=== PATIENT | female | born 1990 | race Caucasian/White ===

== ENCOUNTER 2021-10-15 20:21 | Emergency (ER) | payer BC ==
[~2021-10-15] VITALS: Ht 160 cm; Wt 63.6 kg
[2021-10-15 21:11] VITALS: BP 119/80
--- NOTE | 2021-10-15 21:23 | PHYS DOC ---
Past History Alcohol Use: Occasionally (ZEHRA ESPANA APRN) General Adult EDM: Chief Complaint: ABDOMINAL PAIN HPI: HPI: Patient is a 31-year-old female presents with upper abdominal pain. Patient states that she was pushing her head on the swing today when she was kicked in the stomach by her 3-year-old. Patient states that she was concerned because she is 7 weeks . Patient states that she immediately had a gush of vaginal bleeding but has since resolved. Patient states that she still has mild abdominal pain but it has improved. Denies taking anything for discomfort. No medical history. (ZEHRA ESPANA APRN) Review of Systems: Review of Systems: ROS At least 10 ROS systems have been reviewed and are negative except as documented in the HPI. General: Negative except as outlined in HPI above. Skin: Negative except as outlined in HPI above. HEENT: Negative except as outlined in HPI above. Neck: Negative except as outlined in HPI above. Respiratory: Negative except as outlined in HPI above.. Cardiovascular: Negative except as outlined in HPI above. Abdomen: Negative except as outlined in HPI above. : Negative except as outlined in HPI above. Back/MSK: Negative except as outlined in HPI above. Neuro: Negative except as outlined in HPI above. Psych: Negative except as outlined in HPI above. (ZEHRA ESPANA APRN) Allergies: Allergies: Allergies Coded Allergies Type Severity Reaction Last Updated Verified ampicillin Allergy Unknown 10/15/21 Yes (ZEHRA ESPANA APRN) Physical Exam: PE: Constitutional: Well developed, well nourished, no acute distress, non-toxic appearance. [] HENT: Normocephalic, atraumatic, bilateral external ears normal, oropharynx moist, no oral exudates, nose normal. [] Eyes: PERRLA, conjunctiva normal, no discharge. [] Neck: Normal range of motion, no tenderness, supple, no stridor. [] Cardiovascular:Heart rate regular rhythm, no murmur [] Lungs & Thorax: Bilateral breath sounds clear to auscultation [] Abdomen: Bowel sounds normal, soft, bilateral, upper abdominal pain Skin: Warm, dry, no erythema, no rash. [] Back: No tenderness, no CVA tenderness. [] Extremities: No tenderness, no cyanosis, no clubbing, ROM intact, no edema. [] Neurologic: Alert and oriented X 3, normal motor function, normal sensory function, no focal deficits noted. [] Psychologic: Affect normal, judgement normal, mood normal. [] (ZEHRA ESPANA APRN) EKG: EKG: [] (ZEHRA ESPANA APRN) Radiology/Procedures: Radiology/Procedures: []Exam: CT of abdomen and pelvis without contrast INDICATION: Kicked in stomach, abdominal pain TECHNIQUE: Sequential axial images through the abdomen and pelvis obtained without IV contrast. Sagittal and coronal reformatted images were reconstructed from the axial data and reviewed. Exposure: One or more of the following in the visualized dose reduction techniques were utilized for this examination: 1. Automated exposure control 2. Adjustment of the MA and/or KV according to patient size 3. Use of iterative of reconstructive technique Comparisons: None FINDINGS: Heart size is normal. No pericardial effusion. Visualized lung bases are clear. No pleural effusion. Evaluation of solid organs is limited noncontrast technique. Liver, spleen, pancreas and adrenals are unremarkable. Gallbladder is partially distended. No perinephric inflammation or hydronephrosis. No renal or ureteral calculi are identified. Bladder is decompressed not well. Uterus is not enlarged. No abnormal adnexal mass. Large and small bowel are unremarkable. Appendix is normal. No free intra- abdominal air or fluid. No obstruction. Abdominal aorta has normal course caliber. No enlarged intra-abdominal lymph nodes. No suspicious osseous lesions or acute fractures. IMPRESSION: No sequela of acute traumatic injury identified within the abdomen and pelvis Electronically signed by: Donna Mireles MD (10/15/2021 10:07 PM) [facility] (ZEHRA ESPANA APRN) Heart Score: C/O Chest Pain: No Risk Factors: Risk Factors: DM, Current or recent (<one month) smoker, HTN, HLP, family history of CAD, obesity. Risk Scores: Score 0 - 3: 2.5% MACE over next 6 weeks - Discharge Home Score 4 - 6: 20.3% MACE over next 6 weeks - Admit for Clinical Observation Score 7 - 10: 72.7% MACE over next 6 weeks - Early Invasive Strategies (ZEHRA ESPANA APRN) Course & Med Decision Making: Course & Med Decision Making Pertinent Labs and Imaging studies reviewed. (See chart for details) [] 31-year-old presents with upper abdominal pain after being kicked in the side by her 3-year-old. Patient states that the pain has improved but still has mild tenderness in the upper quadrants. Denies taking anything for discomfort. Patient is requesting a CT of her abdomen and Tylenol for pain. CT abdomen pelvis was unremarkable. No signs of acute trauma. UA positive for leuks and WBCs. Urine test was negative. Patient sent home on Macrobid to treat UTI. Discussed results with patient. Advised patient to drink plenty of fluids. (ZEHRA ESPANA APRN) Course & Med Decision Making Did not see or evaluate patient. Did not discuss patient with SUPPORT ASSISTANT. Generally agree with SUPPORT ASSISTANT's work-up and disposition per note (COLIN FULLER MD) Dragon Disclaimer: Dragon Disclaimer: This electronic medical record was generated, in whole or in part, using a voice recognition dictation system. (ZEHRA ESPANA APRN) Departure Departure: Impression: Primary Impression: Abdominal pain Qualified Codes: R10.9 - Unspecified abdominal pain Disposition: HOME / SELF CARE / HOMELESS Condition: STABLE Referrals: PCP,NO (PCP) Patient Instructions: Abdominal Pain Additional Instructions: You are seen the emergency room for upper abdominal pain after being kicked in the stomach. You were given Tylenol for pain. CT of your abdomen was unremarkable. Your urine was positive for infection. Sending you home with an antibiotic to treat a UTI. Return to emergency room for worsening symptoms or concerns such as increasing vaginal bleeding, increase in pain, nausea vomiting or fevers. EMERGENCY DEPARTMENT GENERAL DISCHARGE INSTRUCTIONS Thank you for coming to [facility] (ED) today and trusting us with you care. We trust that you had a positivie experience in our Emergency Department. If you wish to speak to the department management, you may call the director at [phone]. YOUR FOLLOW UP INSTRUCTIONS ARE FOLLOWS: 1. Do you have a private Doctor? If you do not have a private doctor, please ask for a resource list of physicians or clinics that may be able to assist you with follow up care. 2. The Emergency Physician has interpreted your x-rays. The X-Ray specialist will also review them. If there is a change in the findings, you will be notified in 48 h ours when at all possible. 3. A lab test or culture has been done, your results will be reviewed and you will be notified if you need a change in treatment. ADDITIONAL INSTRUCTIONS AND INFORMATION: 1. Your care today has been supervised by a physician who is specially trained in emergency care. Many problems require more than one evaluation for a complete diagnosis and treatment. We recommend that you schedule your follow up appointment as recommended to ensure complete treatment of you illness or injury. If you are unable to obtain follow up care and continue to have a problem, or if your condition worsens, we recommend that you return to the ED. 2. We are not able to safely determine your condition over the phone nor are we able to give sound medical advice over the phone. For these safety reasons, if you call for medical advice we will ask you to come to the ED for further evaluation. 3. If you have any questions regarding these discharge instructions please call the ED at [phone]. SAFETY INFORMATION: In the interest of safety, wellness, and injury prevention; we encourage you to wear your sealbelt, if you smoke; quite smoking, and we encourage family to use a protective helmet for bicycling and other sporting events that present an increased risk for head injury. IF YOUR SYMPTOMS WORSEN OR NEW SYMPTOMS DEVELOP, OR YOU HAVE CONCERNS ABOUT YOUR CONDITION; OR IF YOUR CONDITION WORSENS WHILE YOU ARE WAITING FOR YOUR FOLLOW UP APPOINTMENT; EITHER CONTACT YOUR PRIMARY CARE DOCTOR, THE PHYSICIAN WHOSE NAME AND NUMBER YOU WERE GIVEN, OR RETURN TO THE ED IMMEDIATELY. Scripts Nitrofurantoin Monohyd/M-Cryst (MACROBID 100 MG CAPSULE) 100 Mg Capsule 100 CAP PO BID for UTI for 5 Days, #10 CAP Prov: ZEHRA ESPANA APRN 10/15/21 ZEHRA ESPANA APRN October 15, 2021 21:23 COLIN FULLER MD October 16, 2021 00:40
[2021-10-15 22:07] LABS: CLARITY,URINE CLEAR; COLOR,URINE COLORLESS; GLUCOSE,URINE NEG (NEG)
[2021-10-15 22:08] LABS: BACTERIA,URINE 0 /HPF (0-FEW); NITRITE,URINE NEG (NEG); RBC,URINE RARE /HPF (0-2); SQUAMOUS EPITHELIAL CELL,UR OCC /LPF; UROBILINOGEN,URINE 0.2 mg/dL (0.2 mg/dL); WBC,URINE OCC /HPF (0-4)
--- NOTE | 2021-10-15 22:09 | RAD ---
Exam: CT of abdomen and pelvis without contrast INDICATION: Kicked in stomach, abdominal pain TECHNIQUE: Sequential axial images through the abdomen and pelvis obtained without IV contrast. Sagit meera and coronal reformatted images were reconstructed from the axial data and reviewed. Exposure: One or more of the following in the visualized dose reduction techniques were utilized for this examination: 1. Automated exposure control 2. Adjustment of the MA and/or KV according to patient size 3. Use of iterative of reconstructive technique Comparisons: None FINDINGS: Heart size is normal. No pericardial effusion. Visualized lung bases are clear. No pleural effusion. Evaluation of solid organs is limited noncontrast technique. Liver, spleen, pancreas and adrenals are unremarkable. Gallbladder is partially distended. No perinephric inflammation or hydronephrosis. No renal or ureteral calculi are identified. Bladder is decompressed not well. Uterus is not enlarged. No abnormal adnexal mass. Large and small bowel are unremarkable. Appendix is normal. No free intra-abdominal air or fluid. No obstruction. Abdominal aorta has normal course caliber. No enlarged intra-abdominal lymph nodes. No suspicious osseous lesions or acute fractures. IMPRESSION: No sequela of acute traumatic injury identified within the abdomen and pelvis Electronically signed by: Donna Mireles MD (10/15/2021 10:07 PM) [facility]
[2021-10-15] MEDS ORDERED: NITR100C62 PO (22:18)
[2021-10-15] MEDS ORDERED: NITROFURANTOIN MONOHYD/M-CRYST 100 MG CAPSULE. PO ONE (22:22)
[2021-10-15] MEDS: NITROFURANTOIN MONOHYD/M-CRYST 100 MG CAPSULE. PO ONE (22:25)
== END 2021-10-15 22:28 | disposition home or self-care (01) ==
LOC: ER 20:21
DX: R10.11 Right upper quadrant pain (principal); R10.12 Left upper quadrant pain; Z88.1 Allergy status to other antibiotic agents
CPT/HCPCS: 74176; 81001; 81025; 87086; 99284